=== PATIENT | female | born 1990 | race Caucasian/White ===

== ENCOUNTER 2023-12-01 13:30 | Emergency (ER) | payer MEDICAID, SELFPAY ==
--- NOTE | ~2023-12-01 | CT_ITS ---
EXAMINATION: CT ABDOMEN AND PELVIS WITH CONTRAST CLINICAL INFORMATION: Status post fall. Severe right back pain. Ecchymosis. COMPARISON: None available. TECHNIQUE: Multidetector volumetric images were obtained from the superior aspect of the liver through the pubic symphysis following administration 85 mL of Omnipaque 350 intravenous contrast. Sagittal and coronal reformatted images were obtained on the technologist's workstation. Oral contrast: No This CT examination was performed using dose optimization techniques as appropriate, variously including the following: *Automated exposure control *Adjustment of mA and/or kV according to patient size (this includes techniques or standardized protocols for targeted exams where dose is matched to indication/reason for exam; i.e. extremities or head) *Use of iterative reconstruction technique DLP: 852 mGy-cm FINDINGS: LUNG BASES: The visualized lung bases are unremarkable. LIVER, GALLBLADDER, AND BILIARY TREE: The liver is normal in size, shape, and attenuation. No focal hepatic lesion or biliary ductal dilatation is present. The gallbladder is unremarkable with no evidence of radiopaque gallstones, gallbladder wall thickening, or obvious pericholecystic inflammatory changes. PANCREAS: Fatty replacement. SPLEEN: Not enlarged. ADRENAL GLANDS: No adrenal mass. KIDNEYS AND URETERS: The kidneys are normal in size, shape, and attenuation. No hydronephrosis, hydroureter, or calculi seen. No perinephric stranding. BLADDER: Unremarkable. GASTROINTESTINAL TRACT: Small and large bowel loops are of normal caliber. No small bowel obstruction. ABDOMINAL WALL: No significant hernia is appreciated. LYMPH NODES: No bulky lymphadenopathy. VASCULAR: Normal caliber abdominal aorta. PELVIC VISCERA: Unremarkable. OSSEOUS STRUCTURES: Dextroscoliosis. Fusion of L3 and L4 vertebral bodies. No destructive bone lesions. CT/CT abdomen pelvis w IV con IMPRESSION: No acute abnormality in the abdomen or pelvis. Fatty replacement of the pancreas. 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
[2023-12-01 13:47] VITALS: BP 154/98; PULSE 110; O2SAT 97; BMI 31.6
--- NOTE | 2023-12-01 14:18 | PC.NURSE ---
IV obtained, unable to obtain labs. [facility] at bedside.
[2023-12-01 14:28] LABS: MANUAL DIFF FLAG NO
[2023-12-01 14:29] LABS: Basophils Absolute Auto 0.1 X10*3/uL (0.0-0.2); Eosinophils Absolute Auto 0.4 X10*3/uL (0.0-0.4); Eosinophils Percent Auto 2.8 % (0-4); Hematocrit 40.3 % (37.0-47.0); Hemoglobin 13.5 g/dl (12.0-16.0); Imm Gran Abs Auto 0.06 X10*3/uL (0.00-0.03); Imm Gran Pct Auto 0.4 % (0.0-0.4); Lymphocytes Absolute Auto 2.2 X10*3/uL (1.2-4.9); Lymphocytes Percent Auto 15.3 % (20-40); Mean Corpuscular HGB Conc 33.5 g/dl (31.0-35.0); Mean Corpuscular Hemoglobin 30.2 pg (27.0-33.0); Mean Corpuscular Volume 90.2 fL (80.0-98.0); Mean Platelet Volume 8.8 fL (9.4-12.3); Monocytes Percent Auto 7.3 % (2-11); Neutrophils Absolute Auto 10.4 x10*3/uL (2.0-8.3); Neutrophils Percent Auto 73.2 % (45-73); Platelet Count 346 X10*3/uL (160-400); Red Blood Count 4.47 X10*6/uL (4.20-5.50); Red Cell Distribution Width 12.7 % (11.0-16.0); White Blood Count 14.2 X10*3/uL (4.8-10.8)
[2023-12-01 14:39] VITALS: BP 116/60; PULSE 98; RESP 18; TEMP 36.9; O2SAT 98
[2023-12-01 14:47] LABS: Alanine Aminotransferase 23 U/L (0-31); Albumin Level 4.1 g/dL (3.5-5.0); Alkaline Phosphatase 129 U/L (39-117); Anion Gap 16 (12-20); Aspartate Amino Transferase 19 U/L (5-31); Bilirubin Direct < 0.2 mg/dL (0.0-0.5); Bilirubin Total 0.2 mg/dL (0.0-1.0); Blood Urea Nitrogen 17 mg/dL (9-16); Calcium 9.6 mg/dL (8.4-10.2); Carbon Dioxide 21 mmol/L (22-29); Chloride 107 mmol/L (96-108); Creatinine Clr Calc Pharmacy 77.4; Estimated Glomerular Filt Rate 56; Glucose Random 91 mg/dL (60-115); Potassium 4.7 mmol/L (3.3-5.1); Sodium 139 mmol/L (135-145); Total Protein 8.1 g/dL (6.5-8.0)
--- NOTE | 2023-12-01 15:04 | ED.FALL ---
HPI - Fall General Chief Complaint: Fall Stated Complaint: Fall t-1, -ve LOC Time Seen by Provider: 12/01/23 13:38 Source: patient and EMS Mode of arrival: EMS Limitations: no limitations History of Present Illness HPI Narrative: 32-year-old female with history of cerebral palsy, developmental delay who presents to the ER for evaluation of right-sided flank pain and right back pain after she slipped and fell in the shower last night. She reports the pain is a 10/10 and she is nauseous from the pain. When she fell last night she did not hit her head or lose consciousness. She lives at home with her mother, unclear why she did not come at the time of the fall. She states the pain is located in her back and her stomach. she has bruising in both areas. no chest pain, headache. she is SOB from the pain. MD complaint: fall Onset (ago): day(s) Fall from: standing Fall witnessed: no Place fall occurred: home Loss of consciousness: none Prolonged down time: minute(s) (family had to assist her up) Symptoms prior to fall: none Location of injury: back and abdomen Severity scale (1-10): 9 Quality: aching and spasming Associated symptoms (after fall): denies Related Data Previous Rx's ?Medication ?Instructions ?Recorded cyclobenzaprine 10 mg tablet 10 mg PO TID PRN muscle pain #14 12/01/23 tabs ibuprofen 600 mg tablet 600 mg PO Q8H PRN pain #14 tabs 12/01/23 lidocaine 5 % topical patch 1 patch topical DAILY #15 ea 12/01/23 Allergies Allergy/AdvReac Type Severity Reaction Status Date / Time No Known Allergies Allergy Verified 12/01/23 13:53 Review of Systems Review of Systems: Yes all other systems are reviewed and are negative [facility] Social History Social History Advance Directives: No Advance Directives Information Provided: Yes Do you have a plan to hurt others: No Plan Physical Exam Vital Signs: Vital Signs: Last Vital Signs Temp 99.1 F 12/01/23 18:09 Pulse 95 12/01/23 18:09 Resp 14 12/01/23 18:09 BP 91/65 12/01/23 18:09 Pulse Ox 96 12/01/23 18:09 O2 Del Method Room Air 12/01/23 18:09 BMI result Body Mass Index 31.6 Appearance: Alert, appears to be in pain, diaphrotic and breathing heavily Head: normocephalic, atraumatic. Eyes: Pupils equal, round and reactive to light. ENT: Pharynx normal. No tonsillar swelling or exudate. Neck: Normal inspection. Neck supple. CVS: Normal heart rate and rhythm. Pulses normal. Respiratory: No respiratory distress. Breath sounds normal. Abdomen: Soft, obese with 4cm area of yellow/purple ecchymosis in the epigastric area that is tender, no guarding. normal active +BS x4 back: right middle thoracic area with 4 cm area of dark purle ecchymosis w/ associated tenderness and soft tissue/muscle spasm. +cva tenderness on the right Skin: Skin warm and dry. Normal skin color. Normal skin turgor. No rashes. Extremities: No lower extremity edema. No joint swelling. atraumatic x4 Neuro/psych: Oriented X 3. cognitive impairment, conversant. CN II-XII intact. Medications Administered Discontinued Medications Generic Name Dose Route Start Last Admin Trade Name Freq PRN Reason Stop Dose Admin Acetaminophen 975 mg 12/01/23 17:02 12/01/23 17:09 Acetaminophen 325 Mg Tablet PO 12/01/23 17:03 975 mg ONCE ONE Administration Cyclobenzaprine HCl 10 mg 12/01/23 16:59 12/01/23 17:10 Cyclobenzaprine Hcl 10 Mg Tablet PO 12/01/23 17:00 10 mg ONCE ONE Administration Iohexol 85 ml 12/01/23 16:00 12/01/23 16:00 Iohexol 350 Mg/Ml 100 Ml Infus..Btl IV 12/01/23 16:01 85 ml ONCE ONE Administration Ketorolac Tromethamine 30 mg 12/01/23 16:59 12/01/23 17:10 Ketorolac Tromethamine 30 Mg/Ml Vial IVPUSH 12/01/23 17:00 30 mg ONCE ONE Administration Lidocaine 1 patch 12/01/23 16:59 12/01/23 17:10 Lidocaine 4 % Patch Adh..Patch TRANSDERMA 12/01/23 17:00 1 patch ONCE ONE Administration Protocol Medical Decision Making Medical Decision Making MDM Narrative: 32 yo female w/ hx CP, ambulates with a walker presenting with abd and back pain s/p slip and fall in the bathtub last night. No headstrike or LOC. neurologically at her baseline. family at the bedside. she appeared very uncomfortable and in severe pain on arrival to the ER. ecchymosis on right back and abd w/ tenderness. IV established and CT scan performed to assess for traumatic injuries and fractures. CT scan without acute injuries, no significant finding to explain her pain. pain most likely muscular - treated with toradol and flexeril with significant improvement upon revaluation. family would like to take her home. ambulating with assistance, slower than her baseline but father is comfortable caring for her at home. stable for d/c with supportive care and outpatient follow up Differential Diagnosis Differential Diagnoses: The differential diagnosis associated with the presentation includes RP bleed, splenic injury, rib fracture, back contusion, closed head injury, liver laceration Lab Data MDM Lab Attestation statement: I reviewed the patient's lab results. leukocytosis likely a stress reaction, normal kidney function 12/01/23 14:24 12/01/23 14:24 Labs: Lab Results 12/01/23 Range/Units 14:24 WBC 14.2 H (4.8-10.8) X10*3/uL RBC 4.47 (4.20-5.50) X10*6/uL Hgb 13.5 (12.0-16.0) g/dl Hct 40.3 (37.0-47.0) % MCV 90.2 (80.0-98.0) fL MCH 30.2 (27.0-33.0) pg MCHC 33.5 (31.0-35.0) g/dl RDW 12.7 (11.0-16.0) % Plt Count 346 (160-400) X10*3/uL MPV 8.8 L (9.4-12.3) fL Immature Gran % (Auto) 0.4 (0.0-0.4) % Neut % (Auto) 73.2 H (45-73) % Lymph % (Auto) 15.3 L (20-40) % [place] % (Auto) 7.3 (2-11) % Eos % (Auto) 2.8 (0-4) % Baso % (Auto) 1.0 (0-2) % Lymph # (Auto) 2.2 (1.2-4.9) X10*3/uL [place] # (Auto) 1.0 (0.1-1.2) X10*3/uL Eos # (Auto) 0.4 (0.0-0.4) X10*3/uL Baso # (Auto) 0.1 (0.0-0.2) X10*3/uL Abs Immat Gran (auto) 0.06 H (0.00-0.03) X10*3/uL Absolute Neuts (auto) 10.4 H (2.0-8.3) x10*3/uL Absolute Nucleated RBC 0.000 (0.0-0.012) X10*3/uL Nucleated RBC % (auto) 0.0 (0.0-0.2) /100WBC Sodium 139 (135-145) mmol/L Potassium 4.7 (3.3-5.1) mmol/L Chloride 107 (96-108) mmol/L Carbon Dioxide 21 L (22-29) mmol/L Anion Gap 16 (12-20) BUN 17 H (9-16) mg/dL Creatinine 1.11 (0.5-1.4) mg/dL Estim Creat Clear Calc 77.4 Estimated GFR 56 Random Glucose 91 (60-115) mg/dL Calcium 9.6 (8.4-10.2) mg/dL Magnesium 2.0 (1.6-2.6) mg/dL Total Bilirubin 0.2 (0.0-1.0) mg/dL Direct Bilirubin < 0.2 (0.0-0.5) mg/dL AST 19 (5-31) U/L ALT 23 (0-31) U/L Alkaline Phosphatase 129 H (39-117) U/L Total Protein 8.1 H (6.5-8.0) g/dL Albumin 4.1 (3.5-5.0) g/dL Beta HCG, Quant < 2 mIU/mL Independent Interpretation I performed an independent interpretation of an: CT Scan Interpretation: no free fluid in the pelvis, no acute abnormalities of liver or spleen apprecaited, agree w/ radiology read Radiology Impression Discussion of test interpretation with radiology: I have reviewed the radiologist's reading. Radiologist Impression: EXAMINATION: CT ABDOMEN AND PELVIS WITH CONTRAST CLINICAL INFORMATION: Status post fall. Severe right back pain. Ecchymosis. COMPARISON: None available. TECHNIQUE: Multidetector volumetric images were obtained from the superior aspect of the liver through the pubic symphysis following administration 85 mL of Omnipaque 350 intravenous contrast. Sagittal and coronal reformatted images were obtained on the technologist's workstation. Oral contrast: No This CT examination was performed using dose optimization techniques as appropriate, variously including the following: *Automated exposure control *Adjustment of mA and/or kV according to patient size (this includes techniques or standardized protocols for targeted exams where dose is matched to indication/reason for exam; i.e. extremities or head) *Use of iterative reconstruction technique DLP: 852 mGy-cm FINDINGS: LUNG BASES: The visualized lung bases are unremarkable. LIVER, GALLBLADDER, AND BILIARY TREE: The liver is normal in size, shape, and attenuation. No focal hepatic lesion or biliary ductal dilatation is present. The gallbladder is unremarkable with no evidence of radiopaque gallstones, gallbladder wall thickening, or obvious pericholecystic inflammatory changes. PANCREAS: Fatty replacement. SPLEEN: Not enlarged. ADRENAL GLANDS: No adrenal mass. KIDNEYS AND URETERS: The kidneys are normal in size, shape, and attenuation. No hydronephrosis, hydroureter, or calculi seen. No perinephric stranding. BLADDER: Unremarkable. GASTROINTESTINAL TRACT: Small and large bowel loops are of normal caliber. No small bowel obstruction. ABDOMINAL WALL: No significant hernia is appreciated. LYMPH NODES: No bulky lymphadenopathy. VASCULAR: Normal caliber abdominal aorta. PELVIC VISCERA: Unremarkable. OSSEOUS STRUCTURES: Dextroscoliosis. Fusion of L3 and L4 vertebral bodies. No destructive bone lesions. CT/CT abdomen pelvis w IV con IMPRESSION: No acute abnormality in the abdomen or pelvis. Fatty replacement of the pancreas. 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 Independent Historian Clinical information obtained from an independent historian. History obtained from or confirmed by: Parent and EMS Prescription Management I considered prescription management with: Pain Medication Chronic Conditions Patient?s care impacted by: Other (CP, obesity) Social Determinants Patient?s care significantly limited by Social Determinants of Health including: Other Social Determinant of Health (family cares for her at home, cognitive impairment ) Discharge Plan Discharge Clinical Impression: Contusion of mid back Qualifiers: Encounter type: initial encounter Laterality: right Qualified Code(s): S20.221A - Contusion of right back wall of thorax, initial encounter Patient Disposition: Home, Self-Care Instructions: Contusion in Adults (ED) Additional Instructions: Your pain is most likely due to muscle strain and spasm. No bending, lifting or twisting. Use ice several times per day for 20 minutes at a time for the next 48 hours and then change to heat. Take medications as prescribed to help with pain and discomfort. Follow up with your Primary Care Doctor this week. If your pain worsens, if you develop new numbness, tingling, weakness, loss of function or incontinence call 911 or come back to the ER right away for evaluation. EXAMINATION: CT ABDOMEN AND PELVIS WITH CONTRAST CLINICAL INFORMATION: Status post fall. Severe right back pain. Ecchymosis. COMPARISON: None available. FINDINGS: LUNG BASES: The visualized lung bases are unremarkable. LIVER, GALLBLADDER, AND BILIARY TREE: The liver is normal in size, shape, and attenuation. No focal hepatic lesion or biliary ductal dilatation is present. The gallbladder is unremarkable with no evidence of radiopaque gallstones, gallbladder wall thickening, or obvious pericholecystic inflammatory changes. PANCREAS: Fatty replacement. SPLEEN: Not enlarged. ADRENAL GLANDS: No adrenal mass. KIDNEYS AND URETERS: The kidneys are normal in size, shape, and attenuation. No hydronephrosis, hydroureter, or calculi seen. No perinephric stranding. BLADDER: Unremarkable. GASTROINTESTINAL TRACT: Small and large bowel loops are of normal caliber. No small bowel obstruction. ABDOMINAL WALL: No significant hernia is appreciated. LYMPH NODES: No bulky lymphadenopathy. VASCULAR: Normal caliber abdominal aorta. PELVIC VISCERA: Unremarkable. OSSEOUS STRUCTURES: Dextroscoliosis. Fusion of L3 and L4 vertebral bodies. No destructive bone lesions. CT/CT abdomen pelvis w IV con IMPRESSION: No acute abnormality in the abdomen or pelvis. Fatty replacement of the pancreas. 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 Prescriptions: New cyclobenzaprine 10 mg tablet 10 mg PO TID PRN (Reason: muscle pain) Qty: 14 0RF ibuprofen 600 mg tablet 600 mg PO Q8H PRN (Reason: pain) Qty: 14 0RF lidocaine 5 % adhesive patch,medicated 1 patch topical DAILY Qty: 15 0RF Rx Instructions: leave on most painful area for up to 12 hrs Interventions: ED Discharge Assessment Last Done: 12/01/23 18:09 Discharge Date/Time: 12/01/23 18:10 Print Language: Citizen [place]
[2023-12-01 15:31] LABS: HCG Quantitative < 2 mIU/mL
[2023-12-01] MEDS: iohexoL 350 MG/ML 100 ML INFUS..BTL 85 ML IV (16:00)
[2023-12-01] MEDS: Acetaminophen 325 MG TABLET 975 MG PO (17:09)
[2023-12-01] MEDS: Lidocaine 4 % Patch ADH..PATCH 1 PATCH TRANSDERMA (17:10)
[2023-12-01] MEDS: Cyclobenzaprine HCl 10 MG TABLET PO (17:10)
[2023-12-01] MEDS: Ketorolac Tromethamine 30 MG/ML VIAL IVPUSH (17:10)
[2023-12-01 18:03] VITALS: BP 91/65; PULSE 95; RESP 14; TEMP 37.3; O2SAT 96
[2023-12-01 18:09] VITALS: BP 91/65; PULSE 95; RESP 14; TEMP 37.3; O2SAT 96
== END 2023-12-01 18:10 | disposition home or self-care (01) ==
PROVIDERS: Physician Assistant; Emergency Provider Emergency Medicine
DX: S20.221A Contusion of right back wall of thorax, initial encounter (principal); S30.1XXA Contusion of abdominal wall, initial encounter; M54.50 Low back pain, unspecified; R10.2 Pelvic and perineal pain; W18.2XXA Fall in (into) shower or empty bathtub, initial encounter; Y93.E1 Activity, personal bathing and showering; Y92.002 Bathroom of unspecified non-institutional (private) residence as the place of occurrence of the external cause; Y99.8 Other external cause status; Z79.899 Other long term (current) drug therapy
CPT/HCPCS: 36415; 74177; 80048; 80076; 83735; 84702; 85025; 96374; 99284; J1885; Q9967

== ENCOUNTER 2025-05-27 08:44 | Outpatient (REF) | payer MEDICAID, SELFPAY ==
[2025-05-27 11:57] LABS: Hematocrit 43.6 % (37.0-47.0); Hemoglobin 13.8 g/dl (12.0-16.0); Imm Gran Abs Auto 0.02 X10*3/uL (0.00-0.03); Imm Gran Pct Auto 0.2 % (0.0-0.4); Lymphocytes Absolute Auto 1.8 X10*3/uL (1.2-4.9); Mean Corpuscular HGB Conc 31.7 g/dl (31.0-35.0); Mean Corpuscular Hemoglobin 28.8 pg (27.0-33.0); Mean Corpuscular Volume 91.0 fL (80.0-98.0); NRBC Abs Auto 0.000 X10*3/uL (0.0-0.012); NRBC Pct Auto 0.0 /100WBC (0.0-0.2); Platelet Count 338 X10*3/uL (160-400); Red Blood Count 4.79 X10*6/uL (4.20-5.50); White Blood Count 9.2 X10*3/uL (4.8-10.8)
[2025-05-27 12:25] LABS: Alanine Aminotransferase 22 U/L (0-31); Albumin Level 4.2 g/dL (3.5-5.0); Alkaline Phosphatase 144 U/L (39-117); Anion Gap 12 (12-20); Aspartate Amino Transferase 25 U/L (5-31); Blood Urea Nitrogen 13 mg/dL (9-16); Calcium 9.3 mg/dL (8.4-10.2); Carbon Dioxide 27 mmol/L (22-29); Chloride 107 mmol/L (96-108); Cholesterol 185 mg/dL (<200); Estimated Glomerular Filt Rate > 60; HDL Cholesterol 43 mg/dL (>40); Potassium 4.0 mmol/L (3.3-5.1); Sodium 142 mmol/L (135-145); Total Protein 7.7 g/dL (6.5-8.0); Triglycerides 110 mg/dL (<150)
[2025-05-27 12:33] LABS: HIV Num 1 0.05 S/CO (0.00-0.99); ~HepC Num1 0.08 S/CO (0.00-0.79); ~Hepatitis C Antibody Nonreactive (Nonreactive)
== END 2025-05-27 08:45 | disposition home or self-care (01) ==
LOC: HO.HHCL 08:44
PROVIDERS: PCP General Practice; Visit Provider General Practice
DX: Z11.4 Encounter for screening for human immunodeficiency virus [HIV] (principal); Z11.59 Encounter for screening for other viral diseases; E66.813 Obesity, class 3; F41.9 Anxiety disorder, unspecified; F32.A Depression, unspecified; Z68.41 Body mass index [BMI] 40.0-44.9, adult
CPT/HCPCS: 36415; 80053; 80061; 83036; 84443; 85025; 86803; 87389